=== PATIENT | female | born 1960 ===

== ENCOUNTER 2016-11-22 07:29 | Day surgery (SDC) | payer OTHER ==
[2016-11-22] MEDS ORDERED: Lactated Ringer's 500 ML IV ONE (08:00)
[2016-11-22] MEDS ORDERED: Propofol 10 mg/ml Inj (20 ML) ONE (08:40)
[2016-11-22 09:30] VITALS: RESP 16; TEMP 98; O2SAT 99
[2016-11-22 09:51] VITALS: BP 128/82; PULSE 64
== END 2016-11-22 09:52 | disposition home or self-care (01) ==
LOC: H.ENDO 07:29
PROVIDERS: ATTEND Internal Medicine Gastroenterology
DX: K64.8 Other hemorrhoids (principal); K74.3 Primary biliary cirrhosis; K63.89 Other specified diseases of intestine; K27.7 Chronic peptic ulcer, site unspecified, without hemorrhage or perforation; K31.9 Disease of stomach and duodenum, unspecified; K20.9 Esophagitis, unspecified; B37.81 Candidal esophagitis